=== PATIENT | female | born 1950 | race Caucasian/White ===

== ENCOUNTER 2018-05-03 09:23 | Emergency (ER) | payer OTHER, MEDICARE ==
[~2018-05-03] VITALS: Ht 162.6 cm; Wt 114.3 kg
[2018-05-03 11:07] VITALS: BP 144/62
== END 2018-05-03 11:08 | disposition home or self-care (01) ==
LOC: M.ERS 09:23
DX: R20.2 Paresthesia of skin (principal); E04.1 Nontoxic single thyroid nodule; F41.9 Anxiety disorder, unspecified; Z88.1 Allergy status to other antibiotic agents; Z88.8 Allergy status to other drugs, medicaments and biological substances

== ENCOUNTER → 2018-05-12 | Outpatient (CLI) | payer OTHER, MEDICARE | LOC: M.ULTRA 09:12 | DX: E04.2 Nontoxic multinodular goiter (principal); F41.9 Anxiety disorder, unspecified ==